=== PATIENT | male | born 1970 | race Caucasian/White ===

== ENCOUNTER → 2016-07-22 | Emergency (ER) | payer OTHER ==
[~2016-07-22] MED LIST: ASPIRIN 81 MG CHEWABLE TABLETS ONE; ASPIRIN 81 MG CHEWABLE TABLETS PO ONE; ATORVASTATIN CA 80 MG TABLET (FP) ONE; ATORVASTATIN CA 80 MG TABLET (FP) PO ONE; CLOPIDOGREL BISULFATE 300 MG TABLET ONE; CLOPIDOGREL BISULFATE 300 MG TABLET PO ONE; ENOXAPARIN NA (PORCINE) 100 MG/1 ML DISP.SYRIN SQ ONE
[2016-07-22 12:50] VITALS: TEMP 99; BMI 31.9
--- NOTE | 2016-07-22 13:31 | PDOC ---
History of Present Illness <Xenia Rodriguez - Last Filed: 07/22/16 14:58> - History of Present Illness Initial Comments: 07/22/16 13:27 45-year-old male with a negative past medical history He is on no medications, NKDA Of note, he smokes one half a pack per day, and has been told that his blood pressure and cholesterol is high in the past, but he is on no medications and has not seen his primary care physician in 4 years There is no family history of CAD Patient is complaining of some left sided chest pain last night associated with some left hand numbness, which lasted about 45 minutes and resolve spontaneously This morning, he also has some left hand numbness and left chest discomfort, which is now gone He denies any associated shortness of breath, palpitations, or neck radiation He also states that for the past 3-4 days he has had a cough which is been nonproductive, and a runny nose He states that there is no change in the chest pain with his cough, and no change in the chest pain with inspiration or musculoskeletal maneuvers He denies any leg swelling or recent travel He denies any abdominal pain nausea vomiting or diarrhea He denies any associated back pain He denies any other complaints at this time and the remainder of the review of systems is negative <Divine Ann - Last Filed: 07/23/16 14:01> - General Chief Complaint: Respiratory Stated Complaint: COUGH,CHEST PAIN Time Seen by Provider: 07/22/16 13:16 Past History <Xenia Rodriguez - Last Filed: 07/22/16 14:58> - Past Medical History HTN: Yes (not treated) - Psycho/Social/Smoking Cessation Hx Anxiety: No Suicidal Ideation: No Smoking Status: No Smoking History: Current every day smoker Have you smoked in the past 12 months: Yes Number of Cigarettes Smoked Daily: 12 Cigars Per Day: 5 Information on smoking cessation initiated: Yes 'Breaking Loose' booklet given: 07/22/16 Hx Alcohol Use: No Drug/Substance Use Hx: No <Divine Ann - Last Filed: 07/23/16 14:01> - Past Medical History Allergies/Adverse Reactions: Allergies Allergy/AdvReac Type Severity Reaction Status Date / Time No Known Allergies Allergy Verified 07/22/16 12:34 Home Medications: Ambulatory Orders NK [No Known Home Medication] 04/25/15 Review of Systems - Review of Systems Able to Perform ROS?: Yes Comments:: 07/22/16 13:29 12 point review of systems is as per history of present illness and otherwise negative <Divine Ann - Last Filed: 07/23/16 14:01> *Physical Exam - Vital Signs Last Vital Signs Temp Pulse Resp BP Pulse Ox 99 F 95 H 20 153/100 98 07/22/16 12:33 07/22/16 12:33 07/22/16 12:33 07/22/16 12:33 07/22/16 12:33 <Xenia Rodriguez - Last Filed: 07/22/16 14:58> - Vital Signs Last Vital Signs Temp Pulse Resp BP Pulse Ox 99 F 95 H 20 153/100 98 07/22/16 12:33 07/22/16 12:33 07/22/16 12:33 07/22/16 12:33 07/22/16 12:33 - Physical Exam Comments: 07/22/16 13:30 Physical exam Last Vital Signs Temp Pulse Resp BP Pulse Ox 99 F 95 H 20 153/100 98 07/22/16 12:33 07/22/16 12:33 07/22/16 12:33 07/22/16 12:33 07/22/16 12:33 GENERAL: The patient is awake, alert, and fully oriented, and in no apparent distress. HEAD: Normal with no signs of trauma. EYES: Sclera anicteric, conjunctiva normal ENT: Number moist NECK: Normal range of motion, supple LUNGS: Breath sounds equal, clear to auscultation bilaterally. No wheezes, and no crackles. HEART: Regular rate and rhythm, normal S1 and S2 without murmur, rub or gallop. ABDOMEN: Soft, nontender, normoactive bowel sounds. No guarding, no rebound. No masses appreciated. EXTREMITIES: Normal range of motion, no edema. No clubbing or cyanosis. No cords, erythema, or tenderness. NEUROLOGICAL: Cranial nerves II through XII grossly intact. Normal speech, normal gait. PSYCH: Normal mood, normal affect. SKIN: Warm, Dry, normal turgor, no rashes or lesions noted. <Divine Ann - Last Filed: 07/23/16 14:01> Heart Score/ECG Review - History History: Moderately suspicious - Electrocardiogram EKG: Non specific repolarization disturbance - Age Age: 45-65 - Risk Factors Risk Factors Heart Score: Yes Hx Hypercholesterolemia, Yes Hx Hypertension, Yes Smoking History Based on the list above the patient has:: >/=3 risk factors or Hx atherosclerotic disease - Troponin Troponin: </= normal limit - Score Heart Score - Total: 5 <Divine Ann - Last Filed: 07/23/16 14:01> ED Treatment Course - LABORATORY CBC & Chemistry Diagram: 07/22/16 13:44 07/22/16 13:44 - ADDITIONAL ORDERS Additional order review: Laboratory Results 07/22/16 07/22/16 13:44 13:44 Sodium 138 Potassium 4.3 Chloride 102 Carbon Dioxide 27 Anion Gap 9 BUN 18 Creatinine 1.2 Creat Clearance w eGFR > 60 Random Glucose 103 Calcium 9.2 Magnesium 2.2 Total Bilirubin 0.5 AST 25 ALT 24 Alkaline Phosphatase 74 Creatine Kinase 163 CK-MB (CK-2) Cancelled Troponin I 0.27 Total Protein 7.1 Albumin 4.3 07/22/16 13:44 RBC 5.36 MCV 93.1 MCHC 33.9 RDW 11.6 L MPV 7.5 - RADIOLOGY Radiograph Interpretation: 07/22/16 14:59 EXAM#: TYPE/EXAM: RESULT: [id number] RAD/CHEST X-RAY PORTABLE* AP portable chest: Chest pain An apical lordotic view reveals clear lungs, prominent mediastinum and sharp angles. Soft tissues are intact. There are degenerative changes. An acute process is not seen. Impression: No acute pathology. No significant change. Reported By: Constantino Bronson MD 07/22/16 2463 - Medications Given in the ED: ED Medications Discontinued Medications Generic Name Dose Route Start Last Admin Trade Name Freq PRN Reason Stop Dose Admin Aspirin 162 mg 07/22/16 13:27 07/22/16 13:51 Asa - PO 07/22/16 13:28 162 mg ONCE ONE Administration <Xenia Rodriguez - Last Filed: 07/22/16 14:58> - LABORATORY CBC & Chemistry Diagram: 07/22/16 13:44 07/22/16 13:44 - RADIOLOGY Radiology Studies Ordered: Category Date Time Status CHEST X-RAY PORTABLE* [RAD] Stat Radiology 07/22/16 13:26 Ordered <Arnaldo Annee - Last Filed: 07/23/16 14:01> Medical Decision Making - Critical Care Time Total Critical Care Time (minutes): 45 Critical Care Statement: The care of this patient involved high complexity decision making to prevent further life threatening deterioration of the patient 's condition and/or to evalute & treat vital organ system(s) failure or risk of failure. - Medical Decision Making 07/22/16 13:30 45-year-old male with cardiac risk factors and suspicious CP, heart score 5 07/22/16 14:45 EKG Normal sinus rhythm 83, 0 axis Normal AV and IV conduction time Normal QTC Inferior Q waves are noted there is no old EKG available for comparison Heart Score of 5 07/22/16 15:26 Laboratory Results - last 24 hr 07/22/16 07/22/16 07/22/16 13:44 13:44 13:44 WBC 7.6 RBC 5.36 Hgb 16.9 Hct 49.9 H MCV 93.1 MCHC 33.9 RDW 11.6 L Plt Count 243 MPV 7.5 Sodium 138 Potassium 4.3 Chloride 102 Carbon Dioxide 27 Anion Gap 9 BUN 18 Creatinine 1.2 Creat Clearance w eGFR > 60 Random Glucose 103 Calcium 9.2 Magnesium 2.2 Total Bilirubin 0.5 AST 25 ALT 24 Alkaline Phosphatase 74 Creatine Kinase 163 CK-MB (CK-2) Cancelled 4.7 H CK-MB (CK-2) Rel Index 2.9 Troponin I 0.27 Total Protein 7.1 Albumin 4.3 Troponin 0.27, EKG abnormal, risk factors, heart score 5 Will need further cardiac workup asa given on arrival, add lovenox 1mg/kg Case discussed with hospitalist-will admit Dr. Cabrera paged 07/22/16 15:30 Chest x-ray-NAD 07/22/16 15:[address] WickOvweekudqyy-sohmavakmx-[id number] admit to telemetry [facility] 07/22/16 18:56 Set of cardiac enzymes-troponin 0.39 ! troponin increasing First set of cardiac enzymes CK 163/troponin 0.27, second set of cardiac enzymes CK 152/troponin 0.[address] Wick again Will add Plavix (patient had Lovenox and aspirin already) Dr. Wick spoke to Dr. Ordonez at [facility]-Dr. Ordonez is arranging for the patient to be transferred to cardiac telemetry at [facility] 07/22/16 19:03 Will add Plavix 600 as per cardiology (patient already had Lovenox and aspirin) Awaiting transfer to cardiology at [facility] Case discussed with Dr. Ordonez-arranging transfer to [facility] Impression-ACS/non-STEMI 07/22/16 19:09 pt is pain-free at this time, and awaiting transfer to [facility] 07/22/16 19:23 EKG #2-unchanged from EKG #1 Q waves are noted in 3 and F, with other nonspecific ST-T waves, but unchanged from the first EKG Case discussed with Dr. Jesus-interventional music industry internship at [facility] Will add Lipitor 80 mg Case discussed with transfer center-stat transport will be here in 20 minutes to take patient to [facility] <Divine Ann - Last Filed: 07/23/16 14:01> *DC/Admit/Observation/Transfer <Xenia Rodriguez - Last Filed: 07/22/16 14:58> - Transfer to Acute Care Facility Receiving Facility: [facility]. Accepting Physician:: Dr Ordonez, interventional cardiology <Divine Ann - Last Filed: 07/23/16 14:01> Diagnosis at time of Disposition: Chest pain, ACS (acute coronary syndrome), Non-STEMI (non-ST elevated myocardial infarction) - Discharge Dispostion Disposition: TRANSFER ACUTE CARE/OTHER HOSP
[2016-07-22 14:14] LABS: MCH 31.5 pg (25.7-33.7); RDW 11.6 % (11.9-15.9)
[2016-07-22 14:16] LABS: MCHC 33.9 g/dl (32.0-35.9); MEAN CELL VOLUME 93.1 fl (80-96); MEAN PLT VOLUME 7.5 fl (7.5-11.1); PLATELET COUNT 243 K/MM3 (134-434); WHITE BLOOD COUNT 7.6 K/mm3 (4.0-10.0)
[2016-07-22 14:25] LABS: ALBUMIN 4.3 g/dl (3.5-5.0); ALK PHOS 74 U/L (32-92); ANION GAP 9 (8-16); BILIRUBIN,TOTAL 0.5 mg/dl (0.2-1.0); CALCIUM 9.2 mg/dl (8.4-10.2); CO2 27 mmol/L (22-28); CREATININE 1.2 mg/dl (0.6-1.3); GLUCOSE,RANDOM 103 mg/dl (74-106); MAGNESIUM 2.2 mg/dL (1.8-2.4); SGOT/AST 25 U/L (10-42); SGPT/ALT 24 U/L (10-40); TOT PROT 7.1 g/dl (6.4-8.3)
[2016-07-22 14:47] LABS: TROPONIN I (DFP) 0.27 ng/ml (0.03-0.50)
[2016-07-22 15:09] LABS: CK MB 4.7 ng/ml (0.3-4.0)
[2016-07-22 16:37] LABS: PH,URINE 6.5 (4.5-8); URINE APPEARANCE Clear; URINE BILIRUBIN Negative (NEGATIVE); URINE BLOOD Negative (NEGATIVE); URINE GLUCOSE (UA) Negative (NEGATIVE); URINE KETONE Negative (NEGATIVE); URINE NITRITE Negative (NEGATIVE); URINE PROTEIN Trace (NEGATIVE); URINE UROBILINOGEN 0.2 E.U/dl (0.2-1.0)
[2016-07-22 16:39] LABS: URINE COLOR y; URINE LEUK ESTERASE TRACE (NEGATIVE)
[2016-07-22 17:34] LABS: URINE RBC NONE SEEN /hpf (0-3)
[2016-07-22 18:51] LABS: TROPONIN I (DFP) 0.39 ng/ml (0.03-0.50)
[2016-07-22 19:36] VITALS: BP 161/94; PULSE 88
--- NOTE | 2016-07-23 10:22 | EKG ---
Test Reason : Blood Pressure : / mmHG Vent. Rate : 085 BPM Atrial Rate : 085 BPM P-R Int : 156 ms QRS Dur : 100 ms QT Int : 376 ms P-R-T Axes : 034 -21 015 degrees QTc Int : 447 ms NORMAL SINUS RHYTHM INCOMPLETE RIGHT BUNDLE BRANCH BLOCK INFERIOR INFARCT (CITED ON OR BEFORE 22-JUL-2016) ABNORMAL ECG WHEN COMPARED WITH ECG OF 22-JUL-2016 13:35, NO SIGNIFICANT CHANGE WAS FOUND Confirmed by NICHOLE REES MD ([id number]) on 07/23/2016 10:22:06 AM Referred By: REYNA Confirmed By:NICHOLE REES MD
--- NOTE | 2016-07-23 10:37 | EKG ---
Test Reason : Blood Pressure : / mmHG Vent. Rate : 083 BPM Atrial Rate : 083 BPM P-R Int : 158 ms QRS Dur : 096 ms QT Int : 378 ms P-R-T Axes : 049 001 023 degrees QTc Int : 444 ms NORMAL SINUS RHYTHM INFERIOR INFARCT , AGE UNDETERMINED ABNORMAL ECG NO PREVIOUS ECGS AVAILABLE Confirmed by NICHOLE REES MD ([id number]) on 07/23/2016 10:36:25 AM Referred By: ANNIE DILLON Confirmed By:NICHOLE REES MD
== END | disposition short-term general hospital (02) ==
LOC: FER 12:33
PROC: 3E023GC Introduction of Other Therapeutic Substance into Muscle, Percutaneous Approach (ICD-10-PCS; principal; 2016-07-22)
DX: R07.9 Chest pain, unspecified (principal); F17.210 Nicotine dependence, cigarettes, uncomplicated; I10 Essential (primary) hypertension
CPT/HCPCS: 36415; 71010-TC; 80053; 81003; 81015; 82550; 82553; 83735; 84484; 85027; 93005; 99284-25

== ENCOUNTER 2017-02-04 22:34 | Emergency (ER) | payer SELFPAY ==
--- NOTE | 2017-02-04 22:39 | PDOC ---
History of Present Illness - General Chief Complaint: Injury Stated Complaint: STEPPED ON BROKEN GLASS YESTERDAY Time Seen by Provider: 02/04/17 22:37 History Source: Patient Exam Limitations: No Limitations - History of Present Illness Initial Comments: 02/04/17 23:25 This is a 46-year-old male who comes in complaining of a foreign body sensation in the bottom of his right foot. Patient said he stepped on some glass yesterday and thinks he may have a little piece of glass in his foot. Patient denies any other complaints. PAST MEDICAL HISTORY: Extensive cardiac history PAST SURGICAL HISTORY: no significant history FAMILY HISTORY: no pertinant history SOCIAL HISTORY: Pt lives with family and is employed. MEDICATIONS: reviewed ALLERGIES: As per nursing notes Review of Systems General: No fevers or chills, no weakness, no weight loss HEENT: No change in vision. No sore throat,. No ear pain CardioVascular: No chest pain or shortness of breath Respiratory:No cough, or wheezing. Gastrointestinal: no nausea, vomitting, diarrhea or constipation, No rectal bleeding Genitourinary: No dysuria, hematuria, or frequency Musculoskeletal: Foreign body right foot Neurologic: No headache, vertigo, dizziness or loss of consciousness Psychiatric: nor depression Skin: No rashes or easy bruising Endocrine: no increased thirst or abnormal weight change Allergic: no skin or latex allergy All other systems reviewed and normal GENERAL: The patient is awake, alert, and fully oriented, in no acute distress. HEAD: Normal with no signs of trauma. EYES: Pupils equal, round and reactive to light, extraocular movements intact, sclera anicteric, conjunctiva clear. EXTREMITIES: Right foot there is a glass in the ball of the right foot just proximal to the great toe NEUROLOGICAL: Normal speech, normal gait. PSYCH: Normal mood, normal affect. SKIN: Warm, Dry, normal turgor, no rashes or lesions noted. Procedure note Foreign body from the plantar surface of the foot with minimal difficulty. The foreign body was superficial enough that it did not penetrate through the callus into the soft tissues of the foot. There was no bleeding and patient tolerated procedure well. Past History - Past Medical History Allergies/Adverse Reactions: Allergies Allergy/AdvReac Type Severity Reaction Status Date / Time No Known Allergies Allergy Verified 02/04/17 22:37 Home Medications: Ambulatory Orders Aspirin [ASA -] 81 mg PO DAILY 02/04/17 Atorvastatin Ca [Lipitor] 80 mg PO HS 02/04/17 Clopidogrel Bisulfate [Plavix -] 75 mg PO DAILY 02/04/17 Lisinopril 5 mg PO DAILY 02/04/17 Metoprolol Tartrate 25 mg PO DAILY 02/04/17 HTN: Yes Hypercholesterolemia: Yes - Psycho/Social/Smoking Cessation Hx Anxiety: No Suicidal Ideation: No Smoking Status: No Smoking History: Current every day smoker Have you smoked in the past 12 months: Yes Number of Cigarettes Smoked Daily: 12 Cigars Per Day: 5 'Breaking Loose' booklet given: 07/22/16 Hx Alcohol Use: No Drug/Substance Use Hx: No *DC/Admit/Observation/Transfer Diagnosis at time of Disposition: Foreign body in right foot Qualifiers: Encounter type: initial encounter Qualified Code(s): S90.851A - Superficial foreign body, right foot, initial encounter - Discharge Dispostion Disposition: HOME Condition at time of disposition: Stable Admit: No - Patient Instructions Additional Instructions: Return to the emergency department immediately with ANY new, persistent or worsening symptoms. Continue any medications as previously prescribed by your physician. You should follow up with your primary doctor as soon as possible regarding today's emergency department visit. . Please make sure your doctor reviews the results of your emergency evaluation. Thank you for coming to the Emergency Department today for your care. It was a pleasure to see you today. Please note that your evaluation is INCOMPLETE until you follow-up with your doctor.
[2017-02-04 22:46] VITALS: BP 124/81; PULSE 88; TEMP 98; BMI 31.3
== END 2017-02-04 23:29 | disposition home or self-care (01) ==
LOC: FER 22:34
DX: S90.851A Superficial foreign body, right foot, initial encounter (principal); W22.8XXA Striking against or struck by other objects, initial encounter; Y93.89 Activity, other specified; Y92.9 Unspecified place or not applicable; F17.210 Nicotine dependence, cigarettes, uncomplicated; I10 Essential (primary) hypertension; E78.00 Pure hypercholesterolemia, unspecified; Z79.82 Long term (current) use of aspirin
CPT/HCPCS: 99281-25

== ENCOUNTER 2017-08-06 00:52 | Emergency (ER) | payer OTHER ==
[2017-08-06 01:02] VITALS: PULSE 97; TEMP 98.6; BMI 34.7
--- NOTE | 2017-08-06 01:07 | PDOC ---
History of Present Illness - General Chief Complaint: Blood Pressure Problem Stated Complaint: HIGH BLOOD PRESSURE Time Seen by Provider: 08/06/17 01:07 - History of Present Illness Initial Comments: This 47-year-old man with a history of hypertension and coronary artery disease (s/p stent placement last year ) had brief episode of posterior neck pain/ headache this evening. Patient decided to check his blood pressure on monitor and saw that it was elevated. Over subsequent measurements, blood pressure was found to be persistently elevated with general range around 180/110. Patient denies chest pain/shortness of breath/palpitations. He has been taking his medications as prescribed Past History - Past Medical History Allergies/Adverse Reactions: Allergies Allergy/AdvReac Type Severity Reaction Status Date / Time No Known Allergies Allergy Verified 08/06/17 00:54 Home Medications: Ambulatory Orders Aspirin [ASA -] 81 mg PO DAILY 02/04/17 Atorvastatin Ca [Lipitor] 80 mg PO HS 02/04/17 Clopidogrel Bisulfate [Plavix -] 75 mg PO DAILY 02/04/17 Lisinopril 5 mg PO DAILY 02/04/17 Metoprolol Tartrate 25 mg PO DAILY 02/04/17 Pantoprazole Sodium [Protonix] 40 mg PO DAILY 08/06/17 Cardiac Disorders: Yes (ACS) COPD: No HTN: Yes Hypercholesterolemia: Yes - Suicide/Smoking/Psychosocial Hx Smoking Status: No Smoking History: Former smoker Have you smoked in the past 12 months: Yes Number of Cigarettes Smoked Daily: 0 Cigars Per Day: 0 Information on smoking cessation initiated: No 'Breaking Loose' booklet given: 07/22/16 Hx Alcohol Use: Yes (OCCAS) Drug/Substance Use Hx: No Substance Use Type: None *Physical Exam - Vital Signs Last Vital Signs Temp Pulse Resp BP Pulse Ox 98.6 F 97 H 18 151/98 97 08/06/17 00:58 08/06/17 00:58 08/06/17 00:58 08/06/17 00:58 08/06/17 00:58 *DC/Admit/Observation/Transfer Diagnosis at time of Disposition: HTN (hypertension) Qualifiers: Hypertension type: essential hypertension Qualified Code(s): I10 - Essential ( primary) hypertension - Discharge Dispostion Disposition: HOME Condition at time of disposition: Stable - Referrals - Patient Instructions Printed Discharge Instructions: DI for High Blood Pressure, Low-Sodium Diet Additional Instructions: Continue to take blood pressure medications as prescribed Low-sodium diet Follow-up with your doctor within 2-3 days Return to ER if you have persistent headache, chest pain, shortness of breath, palpitations - Post Discharge Activity
[2017-08-06 01:49] VITALS: BP 138/88
--- NOTE | 2017-08-06 14:02 | EKG ---
Test Reason : Blood Pressure : / mmHG Vent. Rate : 082 BPM Atrial Rate : 082 BPM P-R Int : 164 ms QRS Dur : 092 ms QT Int : 372 ms P-R-T Axes : 041 -15 015 degrees QTc Int : 434 ms SINUS RHYTHM WITH FREQUENT PREMATURE VENTRICULAR COMPLEXES INFERIOR INFARCT (CITED ON OR BEFORE 22-JUL-2016) ABNORMAL ECG WHEN COMPARED WITH ECG OF 22-JUL-2016 19:19, PREMATURE VENTRICULAR COMPLEXES ARE NOW PRESENT Confirmed by MD Manjula, Jose Angel ([id number]) on 08/06/2017 2:02:19 PM Referred By: BARB COLLINS Confirmed By:Jose Angel Fair MD
== END 2017-08-06 01:49 | disposition home or self-care (01) ==
LOC: FER 00:52
DX: I10 Essential (primary) hypertension (principal); E78.00 Pure hypercholesterolemia, unspecified; Z87.891 Personal history of nicotine dependence
CPT/HCPCS: 93005; 99281-25

== ENCOUNTER 2018-12-14 19:16 | Emergency (ER) | payer OTHER ==
[2018-12-14 19:26] VITALS: BP 128/80; PULSE 87; TEMP 98; BMI 34.7
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
== END 2018-12-14 20:20 | disposition home or self-care (01) ==
LOC: FER 19:16
DX: M25.562 Pain in left knee (principal); I10 Essential (primary) hypertension; I24.9 Acute ischemic heart disease, unspecified
CPT/HCPCS: 73562-TC-LT-FY; 99282-25